=== PATIENT | male | born 1955 | race Caucasian/White ===

== ENCOUNTER 2018-03-17 07:57 | Day surgery (SDC) | payer MEDICARE, OTHER ==
[2018-03-04 11:33] LABS: HEMATOCRIT 46.8 % (37.9-51.0); HEMOGLOBIN 16.6 g/dL (13.5-17.0); MEAN CORPUSCULAR HEMOGLOBIN 34.3 pg (27.0-33.4); MEAN CORPUSCULAR HGB CONC 35.5 g/dL (32.0-36.0); MEAN CORPUSCULAR VOLUME 96 fl (80-97); PLATELET COUNT 211 10^3/uL (150-450); RED BLOOD COUNT 4.86 10^6/uL (4.35-5.55); RED CELL DISTRIBUTION WIDTH 13.3 % (11.5-14.0); WHITE BLOOD COUNT 7.4 10^3/uL (4.0-10.5)
[2018-03-04 11:36] LABS: INTERNATIONAL RATION (INR) 0.94
[2018-03-04 11:37] LABS: PARTIAL THROMBOPLASTIN TIME 30.6 SEC (23.5-35.8)
--- NOTE | 2018-03-05 07:46 | EKG REPORT ---
SEVERITY:- ABNORMAL ECG - SINUS RHYTHM ST ELEV, PROBABLE NORMAL EARLY REPOL PATTERN : Confirmed by: Keisha Arce MD 05-Mar-2018 07:45:17
[~2018-03-17 07:57] MED LIST: CEFAZOLIN 1 GM/D5W RTU 1 GM/50 ML RTUPB IV PRN; LACTATED RINGERS 1000 ML IV PRN; LIDOCAINE 1%/EPINEPHRINE INJ 20 ML VIAL ONE; POVIDONE-IODINE 5% OPH PREP SOLN 30 ML ONE; SODIUM BICARBONATE 8.4% INJ 50 MEQ/50 ML DISP.SYRIN ONE
[2018-03-17] MEDS ORDERED: FENTANYL CITRATE INJ/PF 100 MCG/2 ML AMPUL ONE (10:15)
[2018-03-17] MEDS ORDERED: PROPOFOL INJ 200 MG/20 ML VIAL IV ONE (10:16)
[2018-03-17] MEDS ORDERED: MIDAZOLAM 2 MG/2 ML INJ ONE (10:16)
[2018-03-17] MEDS ORDERED: FENTANYL CITRATE INJ/PF 100 MCG/2 ML AMPUL IV PRN ×3 (11:28)
[2018-03-17] MEDS ORDERED: DIPHENHYDRAMINE HCL 50 MG/ML VIAL IV PRN (11:28)
[2018-03-17] MEDS ORDERED: MEPERIDINE HCL/PF INJ 25 MG/1 ML DISP.SYRIN IV PRN (11:28)
[2018-03-17] MEDS ORDERED: PROMETHAZINE HCL INJ 25 MG/1 ML VIAL IV PRN (11:28)
[2018-03-17] MEDS ORDERED: MORPHINE SULFATE 10 MG/ML INJ IV PRN (11:28)
[2018-03-17] MEDS: FENTANYL CITRATE INJ/PF 100 MCG/2 ML AMPUL ONE ×3 (12:42→13:00)
[2018-03-17 16:37] VITALS: BP 134/76
--- NOTE | 2018-03-24 10:34 | Operative Report ---
Operative Report DATE OF SURGERY: 03/24/18 PREOPERATIVE DIAGNOSIS: Basal cell carcinoma of the right side of the ala nose POSTOPERATIVE DIAGNOSIS: Same OPERATION: Excision of basal cell carcinoma of the right alar area of the nose with frozen section margin control and reconstruction with a full-thickness graft with a bolus tie-over dressing taken from the right clavicular area SURGEON: ITZEL BROWNE ANESTHESIA: LMAC TISSUE REMOVED OR ALTERED: Basal cell carcinoma COMPLICATIONS: None ESTIMATED BLOOD LOSS: Minimal PROCEDURE: The patient was brought into the operating room. The patient was laid on the operating room table in a supine position. The patient was prepped and draped in a sterile and aseptic fashion. After a timeout we then went ahead and marked the area on the right alar area of the nose to be resected. The 12:00 margin the apex of the nose. The 3:00 margin the ala rim. The 6:00 margin the base of nose. The 9:00 margin the medial canthus. Then went ahead and anesthetize the area with 1% lidocaine with epinephrine. Then went ahead and excise the area. Stitch was placed at 12:00 and it was sent for frozen section. Frozen section results came back that the deep and lateral margins were clear. We irrigated the wound with [Betadine] sterile water to lyse any remaining cancer cells. We then went ahead and decided that because of the size of the defect we will proceed with a skin graft. Decided to harvest the graft from [the right clavicular area]. We then went ahead and harvest the [full-thickness] graft. We closed the area with [4-0 Vicryl] sutures and the skin was then closed with 4 -0 PDS with knots being tied on the outside and a support stitch in the center. At the end of the case a light pressure dressing was applied and this was anchored into place with the patient's own clear hypoallergenic dressing. Graft was then defatted to the appropriate size and placed into the area of defect. It was then sutured into place with [5-0 Prolene] sutures leaving one end long. After all the sutures were placed we then went ahead and applied Xeroform. Then went ahead and created a bolus dressing and tied each suture 180 from each other. Then tied the sutures again to each other. Bacitracin was applied. 2 x 2's were applied and the patient's clear dressing that he provided was used to reduce his risk of allergies or allergic reaction. At the end of the case the patient was doing well and brought to the PAR for recovery The approximate size of the lesion was over 1.1 cm. This dictation was performed using [employer] naturally speaking. If there are any inconsistencies please contact the dictating surgeon. Subjective: No complaints Objective: Vital signs stable afebrile No bleeding Dressing intact Assessment and plan: Doing well. Elevate the operative site. Resume medications. Take antibiotics for 1 day Follow-up Full instructions were given to the patient and family and they understand Portions of this note may be dictated using [employer] voice recognition software. Occasional variations and spelling and vocabulary could be possible and are unintentional. Additionally, there is a chance that some errors may not be caught or corrected. Please notify the offer of any discrepancies noted or if any statements are unclear.
== END 2018-03-17 14:45 | disposition home or self-care (01) ==
LOC: OROUT 07:57
PROVIDERS: ATTEND Plastic Surgery
PROC: 0HB5XZZ Excision of Chest Skin, External Approach (ICD-10-PCS; 2018-03-17)
PROC: 0HR1X73 Replacement of Face Skin with Autologous Tissue Substitute, Full Thickness, External Approach (ICD-10-PCS; principal; 2018-03-17 10:00)
DX: C44.311 Basal cell carcinoma of skin of nose (principal); L57.0 Actinic keratosis; L57.8 Other skin changes due to chronic exposure to nonionizing radiation; I10 Essential (primary) hypertension; Z79.01 Long term (current) use of anticoagulants; Z86.718 Personal history of other venous thrombosis and embolism
CPT/HCPCS: 93005; 36415; 85027; 85610; 85730; 88305 ×2; 88331 ×2; 93010; 11642; 15260; J2250; J0690; J3010; J3490 ×3; J2704; 300

== ENCOUNTER 2018-04-28 06:01 | Day surgery (SDC) | payer MEDICARE, OTHER ==
[~2018-04-28 06:01] MED LIST changes: -LACTATED RINGERS 1000 ML IV PRN; -LIDOCAINE 1%/EPINEPHRINE INJ 20 ML VIAL ONE; -POVIDONE-IODINE 5% OPH PREP SOLN 30 ML ONE; -SODIUM BICARBONATE 8.4% INJ 50 MEQ/50 ML DISP.SYRIN ONE
[2018-04-28 07:03] LABS: ANION GAP 12 (5-19); BLOOD UREA NITROGEN 15 mg/dL (7-20); CALCIUM 9.4 mg/dL (8.4-10.2); CARBON DIOXIDE 26 mmol/L (22-30); CHLORIDE 106 mmol/L (98-107); GLUCOSE 102 mg/dL (75-110); POTASSIUM 4.5 mmol/L (3.6-5.0); SODIUM 144.3 mmol/L (137-145)
[2018-04-28] MEDS ORDERED: MIDAZOLAM 2 MG/2 ML INJ ONE (07:05)
[2018-04-28] MEDS ORDERED: LIDOCAINE 2% INJ-PF (20 MG/ML) 10 ML AMPUL ONE (07:05)
[2018-04-28] MEDS ORDERED: FENTANYL CITRATE INJ/PF 100 MCG/2 ML AMPUL ONE (07:05)
[2018-04-28] MEDS ORDERED: PROPOFOL INJ 200 MG/20 ML VIAL IV ONE ×2 (07:05→09:03)
[2018-04-28] MEDS: LIDOCAINE 1%/EPINEPHRINE INJ 20 ML VIAL ONE ×2 (07:51→08:31)
[2018-04-28] MEDS: SODIUM BICARBONATE 8.4% INJ 50 MEQ/50 ML DISP.SYRIN ONE ×2 (07:52→08:31)
[2018-04-28] MEDS: POVIDONE-IODINE 5% OPH PREP SOLN 30 ML ONE ×2 (07:52→08:31)
[2018-04-28] MEDS ORDERED: PROMETHAZINE HCL INJ 25 MG/1 ML VIAL IV PRN ×2 (08:52)
[2018-04-28] MEDS ORDERED: OXYCODONE-ACETAMINOPHEN 5-325 MG TABLET PO PRN ×2 (08:52)
[2018-04-28] MEDS ORDERED: MEPERIDINE HCL/PF INJ 25 MG/1 ML DISP.SYRIN IV PRN (08:52)
[2018-04-28] MEDS ORDERED: ONDANSETRON HCL INJ/PF 4 MG/2 ML SDV IV PRN (08:52)
[2018-04-28] MEDS ORDERED: FENTANYL CITRATE INJ/PF 100 MCG/2 ML AMPUL IV PRN ×3 (08:52)
[2018-04-28] MEDS ORDERED: DIPHENHYDRAMINE HCL 50 MG/ML VIAL IV PRN (08:52)
[2018-04-28] MEDS ORDERED: EPHEDRINE SULFATE INJ 50 MG/1 ML AMPULE ONE (09:02)
--- NOTE | 2018-04-28 10:05 | Operative Report ---
Operative Report DATE OF SURGERY: 04/28/18 PREOPERATIVE DIAGNOSIS: Biopsy-proven basal cell carcinoma of the left alar base. POSTOPERATIVE DIAGNOSIS: Biopsy-proven basal cell carcinoma OPERATION: Excision of basal cell carcinoma of the left alar with frozen section margin control and reconstruction with a full-thickness graft with a bolus dressing. The graft was taken from the left infraclavicular area. SURGEON: ITZEL BROWNE ANESTHESIA: LMAC TISSUE REMOVED OR ALTERED: Basal cell carcinoma COMPLICATIONS: None PROCEDURE: The patient was brought into the operating room. The patient was laid on the operating room table in a supine position. The patient was prepped and draped in a sterile and aseptic fashion. After a timeout we then went ahead and marked the area left ala to be resected. The 12:00 margin was towards the tip of the nose. The 3:00 margin was towards the medial canthus. The 6:00 margin was towards the cheek. The 9:00 margin was towards the alar rim. Then went ahead and anesthetize the area with 1% lidocaine with epinephrine. Then went ahead and excise the area. Stitch was placed at 12:00 and it was sent for frozen section. Frozen section results came back that the deep and lateral margins were clear. We irrigated the wound with Betadine sterile water to lyse any remaining cancer cells. We then went ahead and decided that because of the size of the defect we will proceed with a skin graft. Decided to harvest the graft from the left clavicular area. We then went ahead and harvest the full-thickness graft. We closed the area with 4-0 Vicryl sutures and the skin was then closed with 4- 0 PDS with knots being tied on the outside and a support stitch in the center. At the end of the case we applied Dermabond and then we placed a light pressure dressing. Graft was then defatted to the appropriate size and placed into the area of defect. It was then sutured into place with 5-0 Prolene sutures leaving one end long. After all the sutures were placed we then went ahead and applied Xeroform. Then went ahead and created a bolus dressing and tied each suture 180 from each other. Then tied the sutures again to each other. Bacitracin was applied. 2 x 2's were applied and OpSite was applied which was provided by the patient which works well for him and does not give him any kind of reaction. At the end of the case the patient was doing well and brought to the PAR for recovery The approximate size of the lesion was approximately 9 mm. This dictation was performed using [employer] naturally speaking. If there are any inconsistencies please contact the dictating surgeon. Subjective: No complaints Objective: Vital signs stable afebrile No bleeding Dressing intact Assessment and plan: Doing well. Elevate the operative site. Resume medications. Take antibiotics for 1 day Follow-up Full instructions were given to the patient and family and they understand Portions of this note may be dictated using [facility] voice recognition software. Occasional variations and spelling and vocabulary could be possible and are unintentional. Additionally, there is a chance that some errors may not be caught or corrected. Please notify the offer of any discrepancies noted or if any statements are unclear.
--- NOTE | 2018-04-28 10:09 | Discharge Summary ---
Discharge Summary (SDC) - Discharge Final Diagnosis: Basal cell carcinoma of the left ala Date of Surgery: 04/28/18 Condition: Good Treatment or Instructions: Leave the nasal dressing in place. The chest wound is glued so this will only need to be cleaned with peroxide once the top dressing is removed in 2 days. Antibiotics for 1 day, then discontinue. Elevate operative area to decrease swelling. Do not strain, or lift heavy objects. Call for excessive bleeding, increased temperature of 101, uncontrolled pain, or excessive nausea or vomiting. You may reach Dr. Dalal through his office at [phone]. In the event of an emergency after hours, then contact Dr. Dalal through [facility]. Return to the office for a postop check on . The time will be scheduled by the nursing staff of [facility] prior to discharge. Please give the patient a copy of their labs and EKG so they can bring this to their PMD. Thank you Portions of this note may be dictated using [employer] voice recognition software. Occasional variations and spelling and vocabulary could be possible and are unintentional. Additionally, there is a chance that some errors may not be caught or corrected. Please notify the offer of any discrepancies noted or if any statements are unclear. Referrals: ERYN LANDIN MD [Primary Care Provider] - Discharge Diet: As Tolerated Report the Following to Your Physician Immediately: Unusual Bleeding - Do not touch the nasal dressing. This must stay on until Friday. The clavicular area incision has Dermabond glue on it. Take the top dressing off in 2 days and then clean the wound once a day with a little bit of peroxide. Keep head elevated.
[2018-04-28 12:10] VITALS: BP 129/80
== END 2018-04-28 11:40 | disposition home or self-care (01) ==
LOC: OROUT 06:01
PROVIDERS: ATTEND Plastic Surgery
DX: C44.311 Basal cell carcinoma of skin of nose (principal); I10 Essential (primary) hypertension; M19.90 Unspecified osteoarthritis, unspecified site; E78.00 Pure hypercholesterolemia, unspecified; Z96.612 Presence of left artificial shoulder joint; Z96.653 Presence of artificial knee joint, bilateral; K21.9 Gastro-esophageal reflux disease without esophagitis; Z79.1 Long term (current) use of non-steroidal anti-inflammatories (NSAID); Z79.899 Other long term (current) drug therapy; Z86.718 Personal history of other venous thrombosis and embolism; Z01.818 Encounter for other preprocedural examination
CPT/HCPCS: 36415; 80048; 88305 ×2; 88331 ×2; 11640; 15260; J2250; J0690; J3490 ×5; J3010; J2704; 300